=== PATIENT | male | born 1940 | race Caucasian/White ===

== ENCOUNTER → 2016-04-13 | Outpatient (CLI) | payer MEDICARE, BC ==
--- NOTE | 2016-04-13 16:42 | RADRPT ---
PROCEDURE: XR pelvis/left hip. CLINICAL INDICATION: Hip pain TECHNIQUE: AP pelvis/lateral left hip view performed. COMPARISON: 11/11/2014 FINDINGS: There is a left total hip replacement. There is no evidence of loosening of the prosthesis. There is moderate right hip osteoarthrosis. This is associated with joint space narrowing, subchondr al sclerosis, subchondral cyst formation and osteophytosis. There is normal osseous mineralization. No fractures or osseous lesions are identified. The soft tissues are unremarkable. IMPRESSION: Left total hip replacement. Moderate right hip osteoarthrosis. RPTAT: [facility] .Josh Short MD, Date Time Electronically viewed and signed by .Josh Short MD, on 04/13/2016 16:42 .B/
--- NOTE | 2016-04-13 18:02 | HKNOTE ---
DATE OF SERVICE: 04/13/2016 The patient had a left hip replacement with an ASR socket in 2007. He was very pleased with the res ults of surgery. He has had no pain. His cobalt and chromium levels have been extremely low. He comes in for a recheck. The patient seems to be very interested in "Silvio will sen d me a check any time I complain about this hip." The patient is advised that Silvio i s not even paying for revision of hip replacements and that I do not recommend that he consider leeann g "down that path". The patient ____ he has absolutely no pain and he ____. He is very pleased with the results of surg obdulio. We spent considerable time discussing his social life. He is very active and dates multiple w omen. He can walk as far as he likes. He takes no medications. PHYSICAL EXAMINATION: His temperature 98.4, blood pressure 130/65. Left hip has a full range of mo tion without pain. His gait is normal. No walking aid is needed. IMAGING: X-rays of his hip obtained today show a perfect hip replacement. All components are well placed and seem to be well attached to the bone. MANAGEMENT: The patient is being sent for new cobalt and chromium levels. He will be called with t he results if they are abnormal. Dictated By: DELPHINE MITCHELL/JOCY Conf#: [id number] DID#: [id number]
== END | disposition home or self-care (01) ==
LOC: HKI 15:17
DX: Z47.1 Aftercare following joint replacement surgery (principal); Z96.642 Presence of left artificial hip joint
CPT/HCPCS: 73502; G0463